=== PATIENT | male | born 1980 | race Caucasian/White ===

== ENCOUNTER → 2017-05-09 | Emergency (ER) | payer OTHER ==
[~2017-05-09] VITALS: Ht 177.8 cm; Wt 63.5 kg
[~2017-05-09] MED LIST: PEPCID40 MG PO; PHENERGAN25 MG PO
== END | disposition home or self-care (01) ==
LOC: ER 16:14
DX: B34.9 Viral infection, unspecified (principal); K52.9 Noninfective gastroenteritis and colitis, unspecified